=== PATIENT | female | born 1960 | race Caucasian/White ===

== ENCOUNTER 2018-07-19 02:47 | Inpatient (IN) | payer BC, OTHER ==
[2018-07-19] VITALS (18 sets, daily range): BP systolic 29–155; BP diastolic 28–111
[~2018-07-19] VITALS: Ht 172.7 cm; Wt 85.5 kg
[2018-07-19 03:23] LABS: Hematocrit 38.9 % (36.0-46.0); Hemoglobin 12.7 g/dL (12.2-16.2); Mean Corpuscular Hemoglobin 31.4 pg (28.0-32.0); Mean Corpuscular Hgb Conc. 32.7 g/dL (32.0-36.0); Mean Corpuscular Volume 96.2 fL (80.0-100.0); Platelet Count (auto) 68 10^3/uL (140-450); Red Blood Cells 4.04 10^6/uL (4.0-5.20); Red Cell Distribution Width 14.2 % (11.8-14.3); White Blood Cell 2.4 10^3/uL (4.4-10.8)
[2018-07-19] MEDS ORDERED: SODIUM CHLORIDE 0.9% 500 ML IVB ONE (03:29)
[2018-07-19] MEDS ORDERED: DEXTROSE (50%) 50ML SYRG IV ONE ×3 (03:30→08:30)
[2018-07-19 03:34] LABS: Basophils % (manual) 0 (0.0-2.0); Blast Cells 0; Eosinophils % (manual) 0 (0-7); Myelocytes % 0; Promyelocytes % 0; Reactive Lymphocytes 0
[2018-07-19 03:42] LABS: Blood Alcohol < 3.0 mg/dL (0-5)
[2018-07-19 03:48] LABS: Albumin 2.5 g/dL (3.4-5.0); BUN/Creatinine Ratio 6.6; Calcium 7.7 mg/dL (8.5-10.1); Magnesium 1.7 mg/dL (1.6-2.6)
[2018-07-19 03:51] LABS: Bilirubin, Total 0.4 mg/dL (0.2-1.0); Total Protein 5.3 g/dL (6.4-8.2)
[2018-07-19 03:52] LABS: Band Neutrophils % (manual) 16; Lymphocytes % (manual) 9 (10.0-50.0); Metamyelocytes % 5; Monocytes % (manual) 2 (0-12)
[2018-07-19 03:54] LABS: INR 1.6 (0.9-1.15); Partial Thromboplastin Time 68.6 sec (23.78-33.04); Prothrombin Time 16.7 sec (9.27-12.13)
[2018-07-19 04:03] LABS: Potassium 2.6 mmol/L (3.5-5.1)
[2018-07-19] MEDS ORDERED: ONDANSETRON HCL 4 MG/2 ML VIAL IV ONE (04:15)
[2018-07-19] MEDS: POTASSIUM CHL 20MEQ/100ML 100 ML IV SCH ×4 (04:15→12:28)
[2018-07-19] MEDS ORDERED: SODIUM CHLORIDE 0.9% 1,000 ML IV ONE ×2 (04:15→10:30)
[2018-07-19] MEDS ORDERED: HYDROmorphone HCL 2 MG/ML VL IV ONE ×2 (04:15→05:30)
[2018-07-19 04:25] LABS: Lactic Acid w/Reflex 7.4 mmol/L (0.4-2.0)
[2018-07-19] MEDS ORDERED: POTASSIUM CHL 20MEQ/100ML 100 ML IV ONE (04:59)
[2018-07-19] MEDS ORDERED: metroNIDAZOLE 500MG/100ML 100 ML IV ONE (05:30)
[2018-07-19] MEDS ORDERED: PIPERACILLIN-TAZO 4.5GM 100 ML IV ONE (05:30)
[2018-07-19] MEDS ORDERED: DEXTROSE 50% SYRINGE 50 ML IV ONE ×2 (05:45→07:40)
[2018-07-19] MEDS ORDERED: DEXTROSE 10% 1,000 ML IV ONE ×2 (06:15→07:15)
[2018-07-19] MEDS ORDERED: methylPREDNISolone SOD SUCC 125 MG/2 ML VL IV ONE ×2 (06:30→07:45)
[2018-07-19] MEDS ORDERED: IPRATROPIUM BROM 0.5 MG/2.5ML INH SOL NEB ONE (06:30)
[2018-07-19] MEDS ORDERED: ALBUTEROL SULF 2.5 MG/0.5ML(0.5%) NEB SOLN NEB ONE ×2 (06:30→07:45)
[2018-07-19] MEDS ORDERED: MIDAZOLAM DRIP 50 mg/50mL 50 ML IV ONE ×2 (06:55→08:12)
[2018-07-19] MEDS ORDERED: ETOMIDATE (2MG/ML) 20ML VIAL IV ONE (06:55)
[2018-07-19] MEDS ORDERED: MIDAZOLAM HCL 5 MG/ML-1ML VIAL ONE (06:56)
[2018-07-19] MEDS ORDERED: SUCCINYLCHOLINE CHLORIDE 20 MG/ML 10ML VIAL IV ONE (06:56)
[2018-07-19] MEDS ORDERED: ONDANSETRON HCL 4 MG/2 ML VIAL IV PRN (07:15)
[2018-07-19] MEDS ORDERED: NITROGLYCERIN 0.4 MG SL TAB SL PRN (07:15)
[2018-07-19] MEDS ORDERED: VANCOMYCIN PER PHARMACY 0 MG IV SCH ×2 (07:15→07:30)
[2018-07-19] MEDS ORDERED: ACETAMINOPHEN 325 MG TAB PO PRN (07:15)
[2018-07-19] MEDS ORDERED: TEMAZEPAM 15 MG CAP PO PRN (07:15)
[2018-07-19] MEDS ORDERED: MORPHINE SULFATE 4 MG/ML SYR/VIAL IV PRN ×2 (07:15→12:45)
[2018-07-19 07:21] LABS: Urine Bacteria FEW /hpf (None Seen); Urine Blood 2+ /uL (Negative); Urine Mucus MODERATE (None Seen); Urine Specific Gravity 1.019 (1.001-1.035); Urine WBC 126 /hpf (0 - 5); Urine WBC Clumps PRESENT /hpf (None Seen)
[2018-07-19] MEDS: MIDAZOLAM DRIP 50 mg/50mL 50 ML IV SCH ×2 (07:27→09:10)
[2018-07-19 07:32] LABS: Alcohol, Urine < 3.0 mg/dL (0-5); Amphetamine Screen, Urine NEGATIVE (NEGATIVE); Barbiturate Scree,Urine NEGATIVE (NEGATIVE); Benzodiazephine Screen, Urine POSITIVE (NEGATIVE); Cannabinoid Screen, Urine NEGATIVE (NEGATIVE); Cocaine Screen, Urine NEGATIVE (NEGATIVE); Opiate Scree,Urine NEGATIVE (NEGATIVE); Phencyclidine Screen, Urine NEGATIVE (NEGATIVE)
[2018-07-19] MEDS ORDERED: NOREPINEPHRINE 8 MG/250ML KIT 250 ML IV ONE (07:32)
[2018-07-19] MEDS ORDERED: IOHEXOL 350 MG/ML 100ML IJ ONE (07:52)
[2018-07-19] MEDS ORDERED: GLUCAGON HYDROCHLORIDE (RDNA) 1 MG VIAL ONE (08:04)
[2018-07-19] MEDS ORDERED: ACETAMINOPHEN 325 MG RECT SUPP PR ONE (08:08)
[2018-07-19] MEDS ORDERED: ACETAMINOPHEN 650 MG RECT SUPP PR ONE (08:15)
[2018-07-19] MEDS ORDERED: NOREPINEPHRINE 8 MG/250ML KIT 250 ML IV SCH (08:16)
[2018-07-19] MEDS ORDERED: GLUCAGON HYDROCHLORIDE (RDNA) 1 MG VIAL IM ONE (08:30)
[2018-07-19] MEDS ORDERED: PROPOFOL 100 ML IV ONE (08:38)
[2018-07-19] MEDS ORDERED: PROPOFOL 100 ML IV SCH (08:39)
[2018-07-19] MEDS ORDERED: SODIUM BICARBONATE 8.4 % INJ 50ML VIAL IV ONE ×3 (08:42→09:15)
[2018-07-19] MEDS ORDERED: SODIUM BICARBONATE 50ML VIAL 150 ML in D5W 5% 1,000 ML IV SCH ×2 (08:45→09:00)
[2018-07-19] MEDS ORDERED: VANCOMYCIN 1GM/250ML 250 ML IV ONE (09:00)
[2018-07-19] MEDS: ASPirin 81 mg TAB PO SCH ×2 (09:36→10:00)
[2018-07-19] MEDS ORDERED: PANTOPRAZOLE 40 MG/10 ML VIAL IV SCH (10:00)
[2018-07-19] MEDS ORDERED: PHENYLEPHRINE IV 250 ML IV SCH (10:30)
[2018-07-19] MEDS ORDERED: FLUCONAZOLE 200MG/100ML 100 ML IV ONE (10:30)
[2018-07-19] MEDS ORDERED: ALBUMIN 25% 100 ML IV SCH (10:30)
[2018-07-19] MEDS ORDERED: LEVOTHYROXINE SODIUM 100 MCG/5 ML INJ IV ONE (10:45)
[2018-07-19] MEDS ORDERED: PHENYLEPHRINE HCL 10 MG/ML VL ONE (11:00)
[2018-07-19 11:01] LABS: Hemoglobin 10.1 g/dL (12.2-16.2); Mean Corpuscular Volume 98.1 fL (80.0-100.0); Red Blood Cells 3.15 10^6/uL (4.0-5.20)
[2018-07-19 11:04] LABS: Hematocrit 30.8 % (36.0-46.0); Mean Corpuscular Hemoglobin 32.2 pg (28.0-32.0); Mean Corpuscular Hgb Conc. 32.8 g/dL (32.0-36.0); Red Cell Distribution Width 14.6 % (11.8-14.3); White Blood Cell 7.9 10^3/uL (4.4-10.8)
[2018-07-19 11:10] LABS: Platelet Count (auto) 11 10^3/uL (140-450)
[2018-07-19 11:12] LABS: Basophils % (manual) 0 (0.0-2.0); Blast Cells 0; Eosinophils % (manual) 0 (0-7); Myelocytes % 0; Promyelocytes % 0; Reactive Lymphocytes 0
[2018-07-19 11:20] LABS: Albumin 1.4 g/dL (3.4-5.0); Potassium 4.6 mmol/L (3.5-5.1)
[2018-07-19 11:24] LABS: BUN/Creatinine Ratio 7.1; Bilirubin, Total 1.6 mg/dL (0.2-1.0)
[2018-07-19 11:31] LABS: Calcium 5.6 mg/dL (8.5-10.1)
[2018-07-19 11:34] LABS: Band Neutrophils % (manual) 15; Lymphocytes % (manual) 6 (10.0-50.0); Metamyelocytes % 1; Monocytes % (manual) 5 (0-12)
[2018-07-19] MEDS ORDERED: VASOPRESSIN 50 UNITS in D5W 5% 247.5 ML IV SCH (12:00)
[2018-07-19] MEDS ORDERED: CALCIUM GLUC 4.65meq/50ml D5AE 50 ML IV ONE (12:00)
[2018-07-19] MEDS ORDERED: LORazepam 2MG/ML-1ML VIAL IV PRN (12:45)
[2018-07-19] MEDS ORDERED: metroNIDAZOLE 500MG/100ML 100 ML IV SCH ×2 (13:00→14:00)
[2018-07-19] MEDS ORDERED: PIPERACILLIN-TAZOB 2.25GM 50 ML IV SCH (14:00)
[2018-07-20] MEDS ORDERED: FLUCONAZOLE 200MG/100ML 100 ML IV SCH (10:00)
[2018-07-20] MEDS ORDERED: LEVOTHYROXINE SODIUM 100 MCG/5 ML INJ IV SCH (10:00)
== END 2018-07-19 18:20 | disposition expired | DRG 871 ==
LOC: EDBD 02:47 → ER 02:53 → TELE 07:01 → ICU WEST 08:08
PROVIDERS: ADMIT Nurse Practitioner; ATTEND Internal Medicine
PROC: 5A1935Z Respiratory Ventilation, Less than 24 Consecutive Hours (ICD-10-PCS; principal; 2018-07-19)
PROC: 0BH17EZ Insertion of Endotracheal Airway into Trachea, Via Natural or Artificial Opening (ICD-10-PCS; 2018-07-19)
PROC: 30233R1 Transfusion of Nonautologous Platelets into Peripheral Vein, Percutaneous Approach (ICD-10-PCS; 2018-07-19)
DX: A41.9 Sepsis, unspecified organism (principal); E43 Unspecified severe protein-calorie malnutrition; I21.A1 Myocardial infarction type 2; J96.00 Acute respiratory failure, unspecified whether with hypoxia or hypercapnia; N17.0 Acute kidney failure with tubular necrosis; R65.21 Severe sepsis with septic shock; J15.6 Pneumonia due to other Gram-negative bacteria; D68.9 Coagulation defect, unspecified; I31.3 Pericardial effusion (noninflammatory); D69.6 Thrombocytopenia, unspecified; E27.8 Other specified disorders of adrenal gland; E16.2 Hypoglycemia, unspecified; Z68.28 Body mass index [BMI] 28.0-28.9, adult; E78.5 Hyperlipidemia, unspecified; E87.6 Hypokalemia; F17.210 Nicotine dependence, cigarettes, uncomplicated; K57.30 Diverticulosis of large intestine without perforation or abscess without bleeding; I11.9 Hypertensive heart disease without heart failure; R57.1 Hypovolemic shock; M43.17 Spondylolisthesis, lumbosacral region; K52.9 Noninfective gastroenteritis and colitis, unspecified; Z90.49 Acquired absence of other specified parts of digestive tract
CPT/HCPCS: 36415; 36600; 70450; 71045; 71250; 74176; 80053; 80307; 80320; 81001; 82150; 82805; 82962; 83605; 83690; 83735; 83880; 84439; 84443; 84481; 84484; 85007; 85027; 85610; 85730; 86850; 86900; 86901; 86920; 87040; 87070; 87081; 87205; 93005; 93306; 94002; 94640; 96361; 96365; 96367; 96375; 99291; A6257; C9113; G0378; J0330; J0610; J2250; J2405; J2543; J2704; J3480; J3490; J7060; P9047